=== PATIENT | female | born 1940 | race Hispanic/Latino ===

== ENCOUNTER 2022-03-15 09:31 | Outpatient (CLI) | payer OTHER, MEDICARE ==
[2022-03-15 10:40] LABS: Alanine Aminotransferase 14 units/L (7-56); Albumin 4.6 g/dL (3.9-5); BUN/Creatinine Ratio 15; Blood Urea Nitrogen 12 mg/dL (7-17); Calcium 10.2 mg/dL (8.4-10.2); Hemolysis Index 6
--- NOTE | 2022-03-15 10:48 | XRay Report ---
LUMBAR SPINE 3 VIEWS 10:30 INDICATION: M54.50 LOW BACK PAIN,UNSPECIFIED COMPARISON: None available. FINDINGS: Mild thoracolumbar scoliosis. Prominent degenerative changes seen in the lower lumbar regio n with prominent disc space narrowing at L4-5 and L5-S1 and moderate narrowing at L3-4 with slight re trolisthesis at that level. No other subluxation. No fractures seen. Lower lumbar facet arthritic mario nges. Signer Name: Sebas Tamayo MD Signed: 03/15/2022 10:44 AM Workstation Name: [email or web address]
[2022-03-15 11:08] LABS: Basophils # (Auto) 0.1 K/mm3 (0.0-0.1); Basophils % (Auto) 1.3 % (0.0-1.8); Eosinophils # (Auto) 0.2 K/mm3 (0.0-0.4); Eosinophils % (Auto) 3.3 % (0.0-4.3); Hematocrit 40.8 % (30.3-42.9); Hemoglobin 13.7 gm/dl (10.1-14.3); Lymphocytes # (Auto) 1.5 K/mm3 (1.2-5.4); Lymphocytes % (Auto) 20.4 % (13.4-35.0); Mean Corpuscular HGB Conc 34 % (30-34); Mean Corpuscular Volume 84 fl (79-97); Monocytes # (Auto) 0.6 K/mm3 (0.0-0.8); Monocytes % (Auto) 8.1 % (0.0-7.3); Platelet Count 383 K/mm3 (140-440); Red Blood Count 4.88 M/mm3 (3.65-5.03); Red Cell Distribution Width 13.9 % (13.2-15.2)
[2022-03-15 11:46] LABS: Color,Urine Yellow (Yellow)
[2022-03-15 11:47] LABS: Bilirubin,Urine Negative (Negative); Blood,Urine Negative (Negative)
[2022-03-15 11:48] LABS: Protein,Urine <15 mg/dL mg/dL (Negative)
[2022-03-15 11:54] LABS: RBC,Urine < 1.0 /HPF (0.0-6.0); WBC,Urine < 1.0 /HPF (0.0-6.0)
[2022-03-15 12:12] LABS: Mucus,Urine FEW /HPF
== END 2022-03-15 09:32 | disposition home or self-care (01) ==
LOC: XRAY 09:31
PROVIDERS: ATTEND Internal Medicine
DX: M41.85 Other forms of scoliosis, thoracolumbar region (principal); I10 Essential (primary) hypertension; K44.9 Diaphragmatic hernia without obstruction or gangrene; M48.07 Spinal stenosis, lumbosacral region; M43.17 Spondylolisthesis, lumbosacral region; R73.03 Prediabetes; R53.83 Other fatigue
CPT/HCPCS: 36415; 72100; 80053; 81001; 83036; 84443; 85025

== ENCOUNTER 2022-05-04 11:10 | Outpatient (CLI) | payer OTHER, MEDICARE ==
--- NOTE | 2022-05-04 13:26 | XRay Report ---
RIGHT SHOULDER 3 VIEW(S) INDICATION / CLINICAL INFORMATION: M25.511 PAIN IN RIGHT SHOULDER. COMPARISON: None available. FINDINGS: BONES / JOINT(S): No acute fracture or subluxation. No significant arthritis. SOFT TISSUES: No significant abnormality. ADDITIONAL FINDINGS: None. IMPRESSION: 1. No acute findings. Signer Name: Oneil Juan MD Signed: 05/04/2022 1:21 PM Workstation Name: [email or web address]
== END 2022-05-04 11:11 | disposition home or self-care (01) ==
LOC: XRAY 11:10
PROVIDERS: ATTEND Internal Medicine
DX: M25.511 Pain in right shoulder (principal)

== ENCOUNTER 2022-07-05 09:14 | Outpatient (CLI) | payer OTHER, MEDICARE | END 2022-07-05 09:15 | disposition home or self-care (01) | LOC: LAB 09:14 | PROVIDERS: ATTEND Internal Medicine | DX: R19.7 Diarrhea, unspecified (principal) | CPT/HCPCS: 82270; 87045; 87177 ==